=== PATIENT | female | born 1960 | race Caucasian/White ===

== ENCOUNTER 2017-01-26 10:41 | Emergency (ER) | payer MEDICAID, OTHER ==
[~2017-01-26] VITALS: Wt 78.0 kg
[2017-01-26] MEDS ORDERED: ONDANSETRON (ODT) 4 MG TAB ODT STA (10:44)
[2017-01-26] MEDS ORDERED: HYDROCODONE/APAP (10/325) TAB PO ONE (11:00)
--- NOTE | 2017-01-26 11:32 | RADRPT ---
PROCEDURE: XR Hip. CLINICAL INDICATION: Bilateral hip pain TECHNIQUE: AP pelvis, and frog lateral views of the bilateral hips were performed. COMPARISON: None. FINDINGS: There is normal mineralization and alignment. No fracture or osseous lesion is identified. There are normal hip joints without evidence of arthritis or effusion. Marginal productive changes seen at th e SI joints bilaterally. The soft tissues are unremarkable. IMPRESSION: 1. No acute osseous abnormality. 2. Preserved hip joint spaces. 3. Bilateral SI joint arthrosis. RPTAT: HH. .Adalberto Ramirez MD, MD Date Time Electronically viewed and signed by .Adalberto Ramirez MD, MD on 01/26/2017 11:32 .d/
--- NOTE | 2017-01-26 11:33 | RADRPT ---
PROCEDURE: XR Hip. CLINICAL INDICATION: Bilateral hip pain TECHNIQUE: AP pelvis, and frog lateral views of the bilateral hips were performed. COMPARISON: None. FINDINGS: There is normal mineralization and alignment. No fracture or osseous lesion is identified. There are normal hip joints without evidence of arthritis or effusion. Marginal productive changes seen at th e SI joints bilaterally. The soft tissues are unremarkable. IMPRESSION: 1. No acute osseous abnormality. 2. Preserved hip joint spaces. 3. Bilateral SI joint arthrosis. RPTAT: HH. .Adalberto Ramirez MD, MD Date Time Electronically viewed and signed by .Adalberto Ramirez MD, MD on 01/26/2017 11:33 .d/
--- NOTE | 2017-01-26 11:41 | ERD ---
ER Documentation Chief Complaint Date/Time DATE: 01/26/17 TIME: 11:38 Chief Complaint DIZZINESS AFTER A FALL BUT DENIES HITTING HEAD. NO LOC. GROIN PAIN NOTED HPI 56-year-old female history of diabetes who presents with multiple complaints after a ground-level fall. The patient is a poor historian. She is emotionally upset. A ultrasound spec was used. She states that just prior to arrival while at the store she slipped on something on the ground. She states that she fell to the ground on her bottom. She denies hitting her head but states that immediately after falling she describes a headache. She describes dizziness. She also describes bilateral hip and groin pain. The pain is moderate, throbbing, worse with movement. The patient ambulated at the scene. She denies any neck pain or prodrome of chest pain or shortness of breath. ROS All systems reviewed and are negative except as per history of present illness. FmHx Family History: No diabetes Physical Exam Vitals Vital Signs Date Time Temp Pulse Resp B/P Pulse Ox O2 Delivery O2 Flow Rate FiO2 01/26/17 10:50 98.0 63 20 200/94 98 Physical Exam Airway is intact Bilateral breath sounds Strong distal pulses No obvious deficits General: Well developed, well nourished, no acute distress, histrionic Head: Normocephalic, atraumatic Eyes: Pupils equally reactive, EOM intact ENT: Moist mucous membranes Neck: Supple, no lymphadenopathy, No midline tenderness, deformities, step-offs to the cervical spine, full active and passive range of motion without midline pain. Respiratory: Lungs clear bilaterally, no distress, no chest wall tenderness, no crepitus Cardiovascular: RRR, no murmurs, rubs, or gallops Abdominal: Soft, non-tender, non-distended, no peritoneal signs, pelvis is stable : Deferred MSK: No edema, no unilateral swelling, 5/5 strength, no midline tenderness deformities or step-offs to the thoracolumbar spine. The patient with mild pain with internal and external rotation of bilateral hips with full flexion and extension of the hip and knee. Neurovascular intact distally to bilateral lower extremities. No bony abnormalities to bilateral upper extremities. Neurologic: Alert and oriented, moving all extremities, normal speech, no focal weakness, no cerebellar signs Skin: No ecchymoses or bruising to the chest or abdomen Psych: Normal mood Result Diagram: 01/26/17 1140 01/26/17 1140 Results 24 hrs Laboratory Tests Test 01/26/17 11:40 White Blood Count 4.910^3/ul Red Blood Count 4.4310^6/ul Hemoglobin 12.3g/dl Hematocrit 37.1% Mean Corpuscular Volume 83.7fl Mean Corpuscular Hemoglobin 27.8pg Mean Corpuscular Hemoglobin Concent 33.2g/dl Red Cell Distribution Width 13.9% Platelet Count 29782^3/UL Mean Platelet Volume 12.5fl Neutrophils % 50.0% Lymphocytes % 38.9% Monocytes % 6.2% Eosinophils % 4.1% Basophils % 0.6% Nucleated Red Blood Cells % 0.0/100WBC Neutrophils # 2.410^3/ul Lymphocytes # 1.910^3/ul Monocytes # 0.310^3/ul Eosinophils # 0.210^3/ul Basophils # 0.010^3/ul Nucleated Red Blood Cells # 0.010^3/ul Sodium Level 143mmol/L Potassium Level 4.0mmol/L Chloride Level 110mmol/L Carbon Dioxide Level 25mmol/L Anion Gap 12 Blood Urea Nitrogen 15mg/dl Creatinine 0.81mg/dl Glucose Level 104mg/dl Calcium Level 9.3mg/dl Troponin I < 0.012ng/ml Current Medications Medications (Trade) Dose Ordered Sig/Gabriela Route PRN Reason Start Time Stop Time Status Last Admin Dose Admin Acetaminophen/ Hydrocodone Bitart ([place] (10/325)) 1 tab ONCE ONCE PO 01/26/17 11:00 01/26/17 11:01 DC 01/26/17 11:36 Ondansetron HCl (Zofran Odt) 4 mg ONCE STAT ODT 01/26/17 10:44 01/26/17 10:47 DC 01/26/17 11:35 Procedures/MDM EKG, MONITORS, & DIAGNOSTIC IMAGING: EKG: I reviewed and interpreted a 12-lead EKG. Rhythm: Normal sinus rhythm Ectopy: None Intervals: No abnormalities ST segments: No elevations or depressions T waves: Nonspecific T-wave inversions in leads II and III MRI brain: IMPRESSION: Asymmetric 2 mm thick focus of increased signal seen on FLAIR images only overlying the left frontal lobe may represent artifact or minimal subarachnoid/ subdural hematoma without mass effect. CT scan of the brain recommended for further evaluation. No evidence of acute ischemic changes or mass effect. Nonspecific small scattered areas of T2 and FLAIR signal hyperintensity measuring a few millimeters are seen in the supratentorial white matter most commonly due to chronic mild microvascular ischemic changes. Differential considerations include sequelae of migraines; prior parenchymal injury from infectious or inflammatory/demyelinating process; vasculopathy. Results were discussed with Kenton Thomas by telephone 01/26/2017 1:04: [address] Elbert العلي RPTAT: AADD CT brain: Pending at the time of signout LAB INTERPRETATION: No anemia, negative troponin MEDICAL DECISION MAKING: The patient presents the emergency room with what appears to be a clear mechanical slip and fall. The patient is complaining of headache and bilateral hip pain. X-ray imaging of bilateral hips would be reasonable. The patient has persistent headache that is prompting CT imaging of the brain. However CT imaging is down at our facility. We do not have an active transfer agreement as [facility] is having difficulty with staffing. For this reason an MRI of the brain will be ordered to rule out traumatic injury. Anxiety and emotional upset seem to be complicated her picture as well. The patient's EKG has a nonspecific T-wave inversion. Again, this is most likely nonspecific and age-related. A single troponin would be reasonable with basic blood work to rule out anemia. Patient is not having chest pain and does not describe any exertional symptoms that would be concerning for cardiac ischemia. ER COURSE: The patient's MRI has an abnormality that is prompting CT. I have a very low clinical concern for traumatic subdural. The patient is resting comfortably and symptoms are well controlled. I spoke to Dr. Porras, on-call for neurosurgery. He agrees with CT imaging. CT is ordered. The patient will require transfer to [facility], CT imaging, return to the emergency room. Again, this is most likely artifact seen on MRI. Patient has low mechanism however diagnostic imaging is necessary. I kept the patient and/or family informed of laboratory and diagnostic imaging results throughout the emergency room course. DISPOSITION PLAN: Pending CT imaging but if negative anticipate discharge home We discussed follow up with the patient's primary care doctor within 24 to 48 hours as needed. We also discussed return to the emergency room for worsening symptoms or worsening condition. Outpatient referral: [None required] Discharge Medications: Motrin Departure Diagnosis: Primary Impression: Bilateral hip pain Additional Impression: Closed head injury Encounter type: initial encounter Qualified Code: S09.90XA - Closed head injury, initial encounter Condition: Stable KENTON JO MD Jan 26, 2017 11:41
[2017-01-26 12:11] LABS: ANION GAP 12 (8-16); BLOOD UREA NITROGEN 15 mg/dl (7-20); CALCIUM 9.3 mg/dl (8.4-10.2); CARBON DIOXIDE 25 mmol/L (21-31); CHLORIDE 110 mmol/L (97-110); CREATININE 0.81 mg/dl (0.44-1.00); GLUCOSE 104 mg/dl (70-220); SODIUM 143 mmol/L (135-144)
[2017-01-26 12:15] LABS: BASOPHILS % 0.6 % (0.0-2.0); EOSINOPHILS # 0.2 10^3/ul (0.0-0.5); EOSINOPHILS % 4.1 % (0.0-7.0); HEMATOCRIT 37.1 % (37.0-47.0); HEMOGLOBIN 12.3 g/dl (12.0-16.0); LYMPHOCYTES # 1.9 10^3/ul (0.8-2.9); LYMPHOCYTES % 38.9 % (15.0-51.0); MEAN CORPUSCULAR HEMOGLOBIN 27.8 pg (29.0-33.0); MEAN CORPUSCULAR HGB CONC 33.2 g/dl (32.0-37.0); MEAN CORPUSCULAR VOLUME 83.7 fl (82.0-101.0); MEAN PLATELET VOLUME 12.5 fl (7.4-10.4); MONOCYTE # 0.3 10^3/ul (0.3-0.9); MONOCYTES % 6.2 % (0.0-11.0); NEUTROPHIL # 2.4 10^3/ul (1.6-7.5); PLATELET COUNT 165 10^3/UL (140-415); RED BLOOD COUNT 4.43 10^6/ul (4.20-5.40); RED CELL DISTRIBUTION WIDTH 13.9 % (11.5-14.5); WHITE BLOOD COUNT 4.9 10^3/ul (4.8-10.8)
[2017-01-26 12:24] LABS: TROPONIN-I < 0.012 ng/ml (0.00-0.12)
--- NOTE | 2017-01-26 13:09 | RADRPT ---
PROCEDURE: MRI Brain without contrast. CLINICAL INDICATION: Altered mental status after fall with head trauma TECHNIQUE: Routine MRI of the brain performed without intravenous contrast. COMPARISON: None FINDINGS: Diffusion: No evidence of acute infarct, recent ischemia, or recent ictal focus. Hemorrhage: Asymmetric 2 mm thick focus of increased signal seen on FLAIR images only overlying the left frontal lobe may represent artifact or minimal subarachnoid/subdural hematoma without mass effe ct. Mass effect/midline shift: None. Parenchymal volume: Appears within normal limits for the patient's age. Ventricular system: Concordant with the degree of parenchymal volume. Parenchymal signal changes: Nonspecific small scattered areas of T2 and FLAIR signal hyperintensity measuring a few millimeters are seen in the supratentorial white matter most commonly due to chronic mild microvascular ischemic changes. Differential considerations include sequelae of migraines; kehinde or parenchymal injury from infectious or inflammatory/demyelinating process; vasculopathy. Vasculature: Appropriate flow voids suggesting patency of the central arterial system and visualize d dural venous sinuses. Paranasal sinuses: Clear. Mastoid air cells: Clear. Calvarium: Within normal limits. Extracranial soft tissues: Within normal limits. IMPRESSION: Asymmetric 2 mm thick focus of increased signal seen on FLAIR images only overlying the left frontal lobe may represent artifact or minimal subarachnoid/subdural hematoma without mass effect. CT scan of the brain recommended for further evaluation. No evidence of acute ischemic changes or mass effect. Nonspecific small scattered areas of T2 and FLAIR signal hyperintensity measuring a few millimeters are seen in the supratentorial white matter most commonly due to chronic mild microvascular ischemic changes. Differential considerations include sequelae of migraines; prior parenchymal injury from i nfectious or inflammatory/demyelinating process; vasculopathy. Results were discussed with Kenton Thomas by telephone 01/26/2017 1:04:[address] Elbert ozuna RPTAT: AADD .Elbert العلي MD, Date Time Electronically viewed and signed by .Elbert العلي MD, on 01/26/2017 13:09 .B/
[2017-01-26] MEDS ORDERED: IBUP800T25 PO (13:41)
[2017-01-26] MEDS ORDERED: morphine 4 MG/ML VIAL IV STA (15:09)
[2017-01-26] MEDS ORDERED: morphine 10 MG INJ IM ONE (15:30)
[2017-01-26 18:37] VITALS: BP 166/83; PULSE 51; RESP 20; TEMP 98
== END 2017-01-26 17:59 | disposition short-term general hospital (02) ==
LOC: E/R 10:41
DX: S09.90XA Unspecified injury of head, initial encounter (principal); R40.2142 Coma scale, eyes open, spontaneous, at arrival to emergency department; R40.2252 Coma scale, best verbal response, oriented, at arrival to emergency department; R40.2362 Coma scale, best motor response, obeys commands, at arrival to emergency department; R42 Dizziness and giddiness; W01.0XXA Fall on same level from slipping, tripping and stumbling without subsequent striking against object, initial encounter; Y92.9 Unspecified place or not applicable
CPT/HCPCS: 70551; 72170; 73510; 80048; 84484; 85025; 93005; 96372; J2270; Z7502; Z7610